=== PATIENT | female | born 1970 | race Caucasian/White ===

== ENCOUNTER → 2017-10-25 | Outpatient (CLI) | payer OTHER ==
--- NOTE | 2017-10-25 14:32 | DIAGNOSTIC IMAGING REPORT ---
PELVIC ULTRASOUND CLINICAL HISTORY: EXCESSIVE/FREQUENT MENSTRUATION. COMPARISON STUDY: None. TECHNIQUE: Transabdominal and transvaginal sonography of the pelvis was performed. FINDINGS: The uterus measures 10 x 5.1 x 6.3 cm. Endometrium measures 1.4 cm in thickness. The right ovary measures 4 x 3.1 x 3.5 cm and contains a hypoechoic 2.8 cm lesion without color flow. The left ovary measures 4.1 x 3.3 x 4.9 cm. There is a dominant follicle within the left ovary. Color flow is identified within each ovary. There is no free fluid. IMPRESSION: 1. Endometrial thickness of 1.4 cm which could be correlated with phase of menstrual cycle. No endometrial lesion identified. 2. 2.8 cm hypoechoic right ovarian lesion without color flow. This may reflect a hemorrhagic cyst. A follow-up pelvic ultrasound in 6 weeks to ensure resolution is recommended. Electronically signed by: Estuardo Mares M.D. 10/25/2017 2:31 PM Dictated Date/Time: 10/25/2017 2:29 PM
== END | disposition home or self-care (01) ==
LOC: C.ULTR 11:35
PROVIDERS: ATTEND Student in an Organized Health Care Education/Training Program
DX: N92.0 Excessive and frequent menstruation with regular cycle (principal); N83.9 Noninflammatory disorder of ovary, fallopian tube and broad ligament, unspecified